=== PATIENT | male | born 2000 | race Caucasian/White ===

== ENCOUNTER 2020-12-19 12:42 | Emergency (ER) | payer BC, OTHER ==
--- NOTE | 2020-12-19 13:19 | EDM.PDOC ---
ED HPI GENERAL MEDICAL PROBLEM - General Chief Complaint: Upper Extremity Injury/Pain Stated Complaint: RT WRIST INJURY Time Seen by Provider: 12/19/20 13:09 Source of Information: Reports: Patient, RN Notes Reviewed History Limitations: Reports: No Limitations - History of Present Illness INITIAL COMMENTS - FREE TEXT/NARRATIVE: Patient is a 20-year-old male who presents to the ED for a right hand and wrist injury. The patient works in the [employer] he notes that he was trying to hold onto a pipe with some other guys, when the other guys lost machinist tool and die of the pipe, and the pipe ended up hitting him in the lateral right hand and wrist area. He notes that the area immediately bruised, and became swollen and he had quite a bit of pain. He put ice on this immediately, but has not taken any sort of Tylenol or ibuprofen prior to coming to the ER. This injury happened around 11 AM this morning. He is not having any numbness or tingling distal to the injury, he can move his fingers in all range of motion however he states it is quite painful. He has limited range of motion in his right wrist due to the pain. 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 Patient denies any other sick-like symptoms, fever/chills, cough/shortness of breath, nausea/vomiting/diarrhea. He denies any past medical history. - Related Data Allergies Allergy/AdvReac Type Severity Reaction Status Date / Time No Known Allergies Allergy Verified 10/01/18 18:25 Home Meds: Home Meds . [No Known Home Meds] 10/01/18 [History] Past Medical History - Past Health History Medical/Surgical History: Denies Medical/Surgical History Social & Family History - Family History Family Medical History: No Pertinent Family History - Caffeine Use Caffeine Use: Reports: Coffee, Energy Drinks, Soda, Tea Review of Systems - Review of Systems Review Of Systems: Comprehensive ROS is negative, except as noted in HPI. ED EXAM, GENERAL - Physical Exam Exam: See Below Exam Limited By: No Limitations General Appearance: Alert, WD/WN, No Apparent Distress Respiratory/Chest: No Respiratory Distress, Lungs Clear, Normal Breath Sounds, No Accessory Muscle Use, Chest Non-Tender Cardiovascular: Normal Peripheral Pulses, Regular Rate, Rhythm, No Edema Peripheral Pulses: 2+: Radial (L), Radial (R) Extremities: Normal Capillary Refill, Limited Range of Motion (of right wrist/hand d/t pain) Neurological: Alert, Oriented, Normal Cognition, No Motor/Sensory Deficits Psychiatric: Normal Affect, Normal Mood Skin Exam: Warm, Dry, Intact, Normal Color, No Rash Course - Vital Signs Last Recorded V/S: Last Vital Signs Temp 97.2 F 12/19/20 13:09 Pulse 71 12/19/20 13:09 Resp 12 12/19/20 13:09 BP 137/85 12/19/20 13:09 Pulse Ox 97 12/19/20 13:09 - Re-Assessments/Exams Free Text/Narrative Re-Assessment/Exam: 12/19/20 13:19 Patient presents to the ER for his right hand and wrist injury, we will go ahead and get x-rays of the area, patient is not requesting anything for pain medication at this time. 12/19/20 14:05 X-rays demonstrate no acute fracture or other bony abnormalities. We will get the patient a wrist brace, for wrist immobilization to allow the soft tissue injury to heal. Patient will be given a few days off of work, and general conservative recommendations. Patient verbalized understanding of this plan. Departure - Departure Time of Disposition: 14:06 Disposition: Home, Self-Care 01 Condition: Good Clinical Impression: Unspecified sprain of right wrist, initial encounter - Discharge Information *PRESCRIPTION DRUG MONITORING PROGRAM REVIEWED*: No *COPY OF PRESCRIPTION DRUG MONITORING REPORT IN PATIENT SHEILA: No Instructions: Wrist Sprain, Adult Referrals: PCP,None [Primary Care Provider] - Forms: ED Department Discharge, ED Return to Work/School Form Additional Instructions: You have been evaluated in the ED for your right wrist injury. Your x-ray demonstrated no acute fracture of your right hand or right wrist. Please use ice as tolerated to the affected area. Please try to elevate the affected area to relieve swelling. You were given a wrist brace, please use this as much as possible for the next few days, to help further provide relief from the pain. You may take Tylenol 500 mg or ibuprofen 600mg q6 hrs for pain relief. Please do so until you have a tolerable level of pain with activity. Do not exceed 4000mg Tylenol or 3200mg ibuprofen in a 24 hour time period. Please return to ED if your symptoms should change or worsen. Sepsis Event Note (ED) - Evaluation Sepsis Screening Result: No Definite Risk - Focused Exam Vital Signs: Vital Signs Temp Pulse Resp BP Pulse Ox 12/19/20 13:09 97.2 F 71 12 137/85 97
--- NOTE | 2020-12-19 13:54 | CR ---
Right wrist: 4 views of the right wrist were obtained. Comparison: No previous wrist study. Joint spaces are preserved. No acute fracture, dislocation or other bony abnormality is appreciated. Impression: 1. No abnormality is appreciated on right wrist exam. Diagnostic code #1
--- NOTE | 2020-12-19 13:55 | CR ---
Right hand: 4 views of the right hand were obtained. Comparison: No previous study. Joint spaces are preserved. No acute fracture, dislocation or other bony abnormality is appreciated. Impression: 1. Nothing acute is seen on right hand exam. Diagnostic code #1
== END 2020-12-19 14:18 | disposition home or self-care (01) ==
LOC: JD.ED 12:42
DX: S63.501A Unspecified sprain of right wrist, initial encounter (principal); W22.8XXA Striking against or struck by other objects, initial encounter
CPT/HCPCS: 73110-26-RT; 73110-RT; 73130-26-RT; 73130-RT; 99282; 99283